=== PATIENT | male | born 1945 | race Caucasian/White ===

== ENCOUNTER 2017-12-26 17:45 | Emergency (ER) | payer OTHER, MEDICARE ==
[~2017-12-26] VITALS: Ht 193 cm; Wt 119.2 kg
[2017-12-26] MEDS ORDERED: INDOCIN50 MG PO (19:29)
[2017-12-26] MEDS ORDERED: VALIUM5 MG PO (19:29)
[2017-12-26 19:48] VITALS: BP 144/82
== END 2017-12-26 19:49 | disposition home or self-care (01) ==
LOC: EME 17:45
DX: M54.5 Low back pain (principal); Z87.442 Personal history of urinary calculi; Z88.2 Allergy status to sulfonamides
CPT/HCPCS: 99281; 99284; J1885